=== PATIENT | male | born 2005 | race Caucasian/White ===

== ENCOUNTER 2024-09-10 15:45 | Emergency (ER) | payer SELFPAY ==
[2024-09-10] MEDS: Ibuprofen 600 MG Tab PO ONE (17:49)
[2024-09-10] MEDS: Acetaminophen 500 MG Tab PO ONE (17:49)
== END 2024-09-10 18:25 | disposition home or self-care (01) ==
LOC: MW.ED 15:45
DX: S60.151A Contusion of right little finger with damage to nail, initial encounter (principal); W23.1XXA Caught, crushed, jammed, or pinched between stationary objects, initial encounter; Z75.8 Other problems related to medical facilities and other health care
CPT/HCPCS: 73130; 99283; A9270; 99282